=== PATIENT | female | born 1935 | race Caucasian/White ===

== ENCOUNTER 2023-02-01 12:57 | Inpatient (IN) | payer OTHER, MEDICARE ==
[~2023-02-01] VITALS: Ht 157.5 cm; Wt 49.8 kg
[2023-02-01] MEDS ORDERED: PANTOPRAZOLE 40 MG/10 ML VIAL INJ IV ONE (15:00)
[2023-02-01 15:34] LABS: Basophils # (auto) 0 10 ^3/uL (0-0.2); Basophils % (auto) 0.3 % (0.0-2.0); Eosinophils # (auto) 0 10 ^3/uL (0-0.8); Hematocrit 40.5 % (36.0-46.0); Hemoglobin 13.4 g/dL (12.2-16.2); Lymphocytes # (auto) 1.2 10 ^3/uL (0.4-5.4); Lymphocytes % (auto) 15.5 % (10.0-50.0); Mean Corpuscular Hemoglobin 31.3 pg (28.0-32.0); Mean Corpuscular Hgb Conc. 33.2 g/dL (32.0-36.0); Mean Corpuscular Volume 94.2 fL (80.0-100.0); Monocytes # (auto) 0.5 10 ^3/uL (0-1.3); Monocytes % (auto) 6.1 % (0.0-12.0); Neutrophils # (auto) 6.2 10 ^3/uL (1.6-8.6); Neutrophils % (auto) 78.1 % (37.0-80.0); Nucleated Red Blood Cells % 0.1 %; Red Cell Distribution Width 13.3 % (11.8-14.3); White Blood Cell 7.9 10^3/uL (4.4-10.8)
[2023-02-01 16:08] LABS: Alanine Aminotransferase 11 U/L (7-40); Alkaline Phosphatase 81 U/L (46-116); Anion Gap 9 (5-15); Aspartate Aminotransferase 13 U/L (13-40); BUN/Creatinine Ratio 54.7 (10.0-20.0); Bilirubin, Total 0.6 mg/dL (0.2-1.0); Blood Urea Nitrogen 29 mg/dL (9-23); Calcium 9.3 mg/dL (8.7-10.4); Carbon Dioxide 24 mmol/L (20-30); Chloride 106 mmol/L (98-107); Glucose 148 mg/dL (74-106); Lipase 21 U/L (12-53); Potassium 3.7 mmol/L (3.5-5.1); Sodium 139 mmol/L (136-145); Total Protein 6.4 g/dL (5.7-8.2)
[2023-02-01] MEDS ORDERED: LACTULOSE 20Gm/30ML SOLN PO ONE (18:30)
[2023-02-01] MEDS ORDERED: DOCUSATE SOD 100 MG CAP PO ONE (18:30)
[2023-02-01] MEDS ORDERED: hydrALAZINE HCL 20 MG/ML VL IV PRN (18:30)
[2023-02-01] MEDS ORDERED: ACETAMINOPHEN 325 MG TAB PO PRN (18:30)
[2023-02-01 20:41] VITALS: PULSE 118; RESP 24; O2SAT 95
[2023-02-01] MEDS: SODIUM CHLORIDE 0.9% 1,000 ML IV SCH (21:20)
[2023-02-01] MEDS: LACTULOSE 20Gm/30ML SOLN PO SCH (22:00)
[2023-02-01] MEDS: DOCUSATE SOD 100 MG CAP PO SCH (22:00)
[2023-02-02 06:07] LABS: Basophils # (auto) 0 10 ^3/uL (0-0.2); Basophils % (auto) 0.2 % (0.0-2.0); Eosinophils # (auto) 0 10 ^3/uL (0-0.8); Eosinophils % (auto) 0.1 % (0.0-7.0); Hematocrit 37.9 % (36.0-46.0); Hemoglobin 12.6 g/dL (12.2-16.2); Mean Corpuscular Hemoglobin 31.3 pg (28.0-32.0); Mean Corpuscular Hgb Conc. 33.3 g/dL (32.0-36.0); Monocytes # (auto) 0.7 10 ^3/uL (0-1.3); Monocytes % (auto) 8.9 % (0.0-12.0); Neutrophils # (auto) 5.5 10 ^3/uL (1.6-8.6); Neutrophils % (auto) 66.8 % (37.0-80.0); Red Blood Cells 4.03 10^6/uL (4.0-5.20); White Blood Cell 8.2 10^3/uL (4.4-10.8)
[2023-02-02 06:30] LABS: Albumin 3.7 g/dL (3.2-4.8); Alkaline Phosphatase 72 U/L (46-116); Anion Gap 7 (5-15); Aspartate Aminotransferase 11 U/L (13-40); BUN/Creatinine Ratio 44.2 (10.0-20.0); Blood Urea Nitrogen 23 mg/dL (9-23); Calcium 8.8 mg/dL (8.7-10.4); Carbon Dioxide 26 mmol/L (20-30); Chloride 106 mmol/L (98-107); Glucose 112 mg/dL (74-106); Potassium 3.6 mmol/L (3.5-5.1); Sodium 139 mmol/L (136-145)
[2023-02-02 06:31] LABS: Bilirubin, Total 0.7 mg/dL (0.2-1.0); Total Protein 6.1 g/dL (5.7-8.2)
[2023-02-02 06:36] LABS: Alanine Aminotransferase < 9 U/L (7-40)
[2023-02-02] MEDS: DOCUSATE SOD 100 MG CAP PO SCH ×2 (10:00→23:58)
[2023-02-02] MEDS: LACTULOSE 20Gm/30ML SOLN PO SCH ×2 (10:00→10:07)
[2023-02-02] MEDS: SODIUM CHLORIDE 0.9% 1,000 ML IV SCH (11:10)
[2023-02-02 19:40] VITALS: PULSE 92; RESP 13; O2SAT 98
[2023-02-03] VITALS (8 sets, daily range): BP systolic 133–155; BP diastolic 77–81; PULSE 78–91; RESP 15–20; TEMP 97.8–98.6; O2SAT 92–96
[2023-02-03] MEDS: SODIUM CHLORIDE 0.9% 1,000 ML IV SCH ×2 (05:05→20:18)
[2023-02-03] MEDS ORDERED: D-MA500C PO (05:52)
[2023-02-03] MEDS ORDERED: DOXY-286 PO (05:52)
[2023-02-03] MEDS ORDERED: POLY1POW PO (05:52)
[2023-02-03] MEDS ORDERED: FERR325T20 PO (05:52)
[2023-02-03] MEDS ORDERED: SENN-62 PO (05:52)
[2023-02-03] MEDS ORDERED: ALPR0.5T7 PO (05:52)
[2023-02-03] MEDS ORDERED: QUET50TA PO (05:52)
[2023-02-03] MEDS: DOCUSATE SOD 100 MG CAP PO SCH ×2 (09:19→21:26)
[2023-02-03] MEDS: LACTULOSE 20Gm/30ML SOLN PO SCH ×3 (09:19→21:27)
[2023-02-04 04:47] VITALS: BP 133/75; PULSE 84; RESP 18; TEMP 97.9; O2SAT 95
[2023-02-04 08:00] VITALS: PULSE 75; RESP 20
[2023-02-04] MEDS ORDERED: LACT10PA2 PO (08:41)
[2023-02-04] MEDS ORDERED: DOCU-94 PO (08:41)
[2023-02-04 09:00] VITALS: BP 133/76; PULSE 78; RESP 15; O2SAT 96
[2023-02-04] MEDS: LACTULOSE 20Gm/30ML SOLN PO SCH (11:53)
[2023-02-04] MEDS: DOCUSATE SOD 100 MG CAP PO SCH (11:53)
[2023-02-04 13:00] VITALS: BP 112/76; PULSE 84; RESP 15; O2SAT 95
[2023-02-04] MEDS: SODIUM CHLORIDE 0.9% 1,000 ML IV SCH (13:29)
[2023-02-04 17:00] VITALS: BP 130/76; PULSE 83; RESP 15; TEMP 98.3; O2SAT 97
== END 2023-02-04 18:00 | disposition hospice, home (50) | DRG 378 ==
LOC: EDBD 12:57 → ER 12:57 → OVERFLOW 18:26 → CENTRAL 02-02 22:53
PROVIDERS: ADMIT Nurse Practitioner Family; ATTEND Family Medicine
DX: K62.5 Hemorrhage of anus and rectum (principal); K56.49 Other impaction of intestine; R64 Cachexia; K56.41 Fecal impaction; Z74.01 Bed confinement status; R73.9 Hyperglycemia, unspecified; F03.90 Unspecified dementia, unspecified severity, without behavioral disturbance, psychotic disturbance, mood disturbance, and anxiety; G89.29 Other chronic pain; M54.9 Dorsalgia, unspecified
CPT/HCPCS: 36415; 74018; 74176; 80053; 82140; 82270; 83605; 83690; 84484; 85025; 86850; 86900; 86901; C9113; G0378